=== PATIENT | male | born 1990 | race Caucasian/White ===

== ENCOUNTER 2017-08-07 18:42 | Emergency (ER) | payer OTHER ==
[2017-08-07 18:55] VITALS: BP 118/90; PULSE 73; RESP 17; TEMP 98.1; O2SAT 98
--- NOTE | 2017-08-07 19:29 | EDPHY ---
H & P Smoking Status: Never smoked Time Seen by Provider: 08/07/17 19:04 HPI/ROS: CHIEF COMPLAINT: Left shoulder injury HISTORY OF PRESENT ILLNESS: 27-year-old male presents to the emergency department with injury to his left shoulder. The patient was on a long board and lost control and fell directly on his left shoulder and then rolled. He denies hitting his head or losing consciousness. He denies a headache. Denies neck or back pain. Denies chest pain or difficulty breathing. Denies abdominal pain. Denies paresthesias in his upper or lower extremities. Denies pain in his left elbow or left wrist. Denies symptoms in the right upper extremity or lower extremities bilaterally. The incident happened at 3:00 p.m. Today. Denies any other trauma or injury. REVIEW OF SYSTEMS: Constitutional: No fever, no chills. Eyes: No double or blurry vision. ENT: No sore throat. Respiratory: No cough, no shortness of breath. Cardiac: No chest pain. Gastrointestinal: No abdominal pain, vomiting or diarrhea. Genitourinary: No dysuria. Musculoskeletal: No neck or back pain. Skin: No rashes. Neurological: No headache. (Mandi,Zuly M) Past Medical/Surgical History: Negative (Piain,Zuly M) Social History: Single and lives in [place] (Piain,Zuly M) Physical Exam: General Appearance: Alert, no distress. No visible signs of trauma to his head. He is mentating normally and answering questions appropriately. Eyes: Pupils equal and round. Extraocular motions are all intact. ENT: Mouth: Mucous membranes moist. Respiratory: No wheezing, rhonchi, or rales, lungs are clear to auscultation. Cardiovascular: Regular rate and rhythm. Gastrointestinal: Abdomen is soft and nontender, no masses, no rebound or guarding, bowel sounds normal. Neurological: Alert and oriented x 3, cranial nerves II through XII grossly intact Skin: Superficial abrasions noted to the posterior aspect of the left shoulder as well as dorsal aspect of the left elbow and proximal forearm. Warm and dry, no rashes. Musculoskeletal: Nontender to palpate along the cervical, thoracic or lumbar spine. Neck is supple. Extremities: Reproducible pain with palpation over the left AC joint. He has some mild pain over the left distal clavicle as well. No evidence of skin tenting. He does have some mild swelling over the left AC joint. Limited internal and external rotation of the left shoulder secondary to pain. Full range of motion of the left elbow and left wrist. Full range of motion of the right upper extremity and lower extremities bilaterally. Normal gait. Psychiatric: Patient is oriented X 3, there is no agitation. (Zuly Raymond) Constitutional: Initial Vital Signs Temperature (C) 36.7 C 08/07/17 18:53 Heart Rate 73 08/07/17 18:53 Respiratory Rate 17 08/07/17 18:53 Blood Pressure 118/90 H 08/07/17 18:53 O2 Sat (%) 98 08/07/17 18:53 O2 Delivery Mode Room Air Allergies/Adverse Reactions: No Known Allergies Allergy (Unverified 08/07/17 18:53) Home Medications: Medication Instructions Recorded NK [No Known Home Meds] 08/07/17 Medical Decision Making - Diagnostics Imaging: I viewed and interpreted images myself - Diagnostics Imaging Results: Imaging Impressions Shoulder X-Ray 08/07/17 19:14 Impression: 1. No fracture of the left shoulder. 2. Suspect AC joint separation. X-rays of the left shoulder reveal evidence of AC separation without fracture. This was reviewed by myself the PAC system. Radiology interpretation to follow. (Zuly Raymond) Procedures: The patient was placed in a sling and examined post application in good placement with normal CIRCULAR STUFFER. (Zuly Raymond) ED Course/Re-evaluation: 27-year-old male presents to the emergency department with left shoulder injury. X-rays have been ordered. X-ray was reviewed by myself and revealed evidence of AC separation without fracture. The patient was placed in a sling and given orthopedic referral. ( Zuly Raymond) I did not see this patient while he was in the emergency department. However his care was discussed with the PA while the patient was in the department. I agree with treatment plan and management (Ceasar [place]) Differential Diagnosis: Including but not limited to fracture, dislocation, contusion, sprain (Zuly Raymond) Departure - Departure Disposition: Home, Routine, Self-Care Clinical Impression: Separation of left acromioclavicular joint Qualifiers: Encounter type: initial encounter Qualified Code(s): S43.102A - Unspecified dislocation of left acromioclavicular joint, initial encounter Contusion of shoulder, left Qualifiers: Encounter type: initial encounter Qualified Code(s): S40.012A - Contusion of left shoulder, initial encounter Condition: Good Instructions: Acromioclavicular Separation (ED), Contusion in Adults (ED) Additional Instructions: Sling for comfort and support. Ibuprofen 600 mg every 8 hr as needed for pain. Follow up with orthopedic surgeon next week to recheck. Referrals: Victor Hugo Fenton MD [Medical Doctor] - 5-7 days, call for appt. (Orthopedic surgeon on-call)
== END 2017-08-07 19:43 | disposition home or self-care (01) ==
DX: S43.102A Unspecified dislocation of left acromioclavicular joint, initial encounter (principal); S40.012A Contusion of left shoulder, initial encounter; W01.0XXA Fall on same level from slipping, tripping and stumbling without subsequent striking against object, initial encounter; Y99.8 Other external cause status; Y93.89 Activity, other specified
CPT/HCPCS: A4565